=== PATIENT | female | born 1995 | race Asian ===

== ENCOUNTER 2017-09-27 15:13 | Emergency (ER) | payer MEDICAID ==
[~2017-09-27] VITALS: Ht 149.9 cm; Wt 50.0 kg
[2017-09-27] MEDS ORDERED: DEXAMETHASONE SOD PHOS 4 MG/ML VIAL IM ONE (16:45)
[2017-09-27] MEDS ORDERED: DiphenhydrAMINE HCL 50 MG/ML VIAL IM ONE (16:45)
[2017-09-27 18:03] VITALS: BP 132/79
== END 2017-09-27 18:11 | disposition home or self-care (01) ==
LOC: EMS 15:15
DX: L23.9 Allergic contact dermatitis, unspecified cause (principal); L50.9 Urticaria, unspecified
CPT/HCPCS: 96372; 99284; J1100; J1200

== ENCOUNTER 2018-01-06 17:07 | Emergency (ER) | payer MEDICAID ==
[~2018-01-06] VITALS: Ht 147.3 cm; Wt 50.9 kg
[2018-01-06] MEDS ORDERED: PRED1 PO (17:58)
[2018-01-06] MEDS ORDERED: AMOX250C4 PO (17:58)
[2018-01-06] MEDS ORDERED: ACETAMINOPHEN 325 MG TABLET PO ONE (18:00)
[2018-01-06 21:42] VITALS: BP 115/77
== END 2018-01-06 22:01 | disposition home or self-care (01) ==
LOC: EMS 17:08
DX: J02.9 Acute pharyngitis, unspecified (principal); I88.9 Nonspecific lymphadenitis, unspecified
CPT/HCPCS: 99283

== ENCOUNTER 2018-01-09 08:20 | Emergency (ER) | payer MEDICAID ==
[~2018-01-09] VITALS: Ht 147.3 cm; Wt 48.0 kg
[~2018-01-09 08:20] MED LIST: AMOX250C4 PO; PRED1 PO
[2018-01-09] MEDS ORDERED: AZIT250T9 PO (08:46)
[2018-01-09] MEDS ORDERED: DEXAMETHASONE SOD PHOS 4 MG/ML 5 ML VIAL IVP ONE (09:15)
[2018-01-09 09:34] LABS: BASOPHILS % (AUTO) 0.4 % (0.0-2.0); EOSINOPHILS % (AUTO) 0.1 % (1.0-6.0); HEMATOCRIT 39.9 % (36-46); HEMOGLOBIN 13.8 g/dL (12.0-16.0); LYMPHOCYTES # (AUTO) 1.3 K/uL (1.0-4.8); LYMPHOCYTES % (AUTO) 9.6 % (22.0-44.0); MEAN CORPUSCULAR HEMOGLOBIN 28.3 pg (26.0-34.0); MEAN CORPUSCULAR HGB CONC 34.6 G/dL (31.0-37.0); MEAN CORPUSCULAR VOLUME 82 fL (80-100); MONOCYTES % (AUTO) 7.5 % (2.0-9.0); NEUTROPHILS # (AUTO) 11.1 K/uL (1.8-7.7); NEUTROPHILS % (AUTO) 82.4 % (40.0-70.0); PLATELET COUNT (AUTO) 374 K/uL (150-450); RED BLOOD CELL COUNT(AUTO) 4.88 MIL/uL (4.00-5.20); RED CELL DISTRIBUTION WIDTH 12.5 % (11.5-14.5)
[2018-01-09 09:39] LABS: ANION GAP 9 mmol/L (8-16); CALCIUM, TOTAL 8.9 mg/dL (8.8-10.5); CARBON DIOXIDE 29 mmol/L (22-29); CHLORIDE 102 mmol/L (98-107); CREATININE 0.63 mg/dL (0.60-1.30); GLOMERULAR FILTR. RATE CALC > 60 mL/min (>60); GLUCOSE,RANDOM 118 mg/dL (70-110); POTASSIUM 4.2 mmol/L (3.5-5.1); SODIUM SERUM 140 mmol/L (136-145); UREA NITROGEN, BLOOD 17 mg/dL (7-18)
[2018-01-09 09:45] LABS: ALANINE AMINOTRANSFERASE 19 U/L (12-78); ALBUMIN 3.6 g/dL (3.4-5.0); ALKALINE PHOSPHATASE 57 U/L (46-116); ASPARTATE AMINOTRANSFERASE 14 U/L (15-37); BILIRUBIN,TOTAL 0.2 mg/dL (0.1-1.0); TOTAL PROTEIN, SERUM 8.6 g/dL (6.4-8.2)
[2018-01-09] MEDS ORDERED: DiphenhydrAMINE HCL 50 MG/ML VIAL IVP ONE (09:45)
[2018-01-09 10:15] LABS: MONOTEST NEGATIVE (NEGATIVE)
[2018-01-09] MEDS ORDERED: SODIUM CHLORIDE 0.9% 1,000 ML IV ONE (10:30)
[2018-01-09] MEDS ORDERED: AMOX TR/POT CLAV 875 MG/125 MG TABLET PO ONE (11:15)
[2018-01-09 12:19] VITALS: BP 110/71
== END 2018-01-09 12:21 | disposition home or self-care (01) ==
LOC: EMS 08:21
DX: T78.49XA Other allergy, initial encounter (principal); J02.0 Streptococcal pharyngitis; Z88.1 Allergy status to other antibiotic agents; Z88.8 Allergy status to other drugs, medicaments and biological substances; X58.XXXA Exposure to other specified factors, initial encounter
CPT/HCPCS: 36415; 80053; 85025; 86060; 86063; 86308; 96361; 96374; 96375; 99284; J1100; J1200